=== PATIENT | female | born 1960 | race Caucasian/White ===

== ENCOUNTER → 2017-01-16 | Outpatient (CLI) | payer BC ==
--- NOTE | 2017-01-16 15:53 | CT ---
EXAM DESCRIPTION: Abdoment/Pelvis w/o Contrast CLINICAL HISTORY: KIDNEY STONES COMPARISON: None. TECHNIQUE: CT of the abdomen and pelvis was performed without contrast. Multiple axial images and multiplanar reconstructions were generated. FINDINGS: Lung bases are clear. Osseous structures demonstrate no suspicious findings. There is a 3 mm stone noted within the distal right ureter resulting in right hydronephrosis. Nonobstructing 1 mm left midsegment renal stone. No additional renal stones noted. The liver, spleen, bilateral adrenal glands and pancreas are unremarkable. Patient is status post cholecystectomy. The bowel is unremarkable. Patient is status post hysterectomy. The pelvis is unremarkable. IMPRESSION: 1. 3 mm right distal ureteral stone resulting in moderate right hydronephrosis. 2. Tiny 1 mm midsegment left nonobstructing renal stone. 3. Patient is status post hysterectomy and cholecystectomy. Electronically signed by: Navid Mckeon MD 01/16/2017 3:51 PM [employer]ERK
== END | disposition home or self-care (01) ==
LOC: GMAM 13:22
PROVIDERS: ATTEND Nurse Practitioner Family
DX: R31.9 Hematuria, unspecified (principal)

== ENCOUNTER 2017-01-26 10:57 | Emergency (ER) | payer BC ==
--- NOTE | 2017-01-26 11:28 | ED.PDOC ---
History of Present Illness - General Chief Complaint: Abdominal Pain Stated Complaint: abdominal pain Time Seen by Provider: 01/26/17 11:00 Information Source: patient, RN notes reviewed, Vital Signs reviewed Exam Limitations: no limitations - History of Present Illness Initial Comments: Patient reports that on Friday she started with R flank and abd pain. She has been running a fever to 103 and this morning she started vomiting. Almost 2 weeks ago she was diagnosed with a 3mm kidney stone on R and was placed on antibiotics and flomax. She felt like she passed the stone 1 week ago because the pain resolved. Her doctor did call last week and placed her on a different antibiotic for her UTI but she does not recall the name of the new antibiotic. Abdominal Pain Onset Location: RUQ, flank - Right Pain Radiation: groin Quality: severe, cramping, stabbing, throbbing Timing/Duration: days - 3 Improving Factors: nothing Worsening Factors: nothing Associated Symptoms: back pain, fever/chills, nausea/vomiting Review of Systems - Review of Systems Constitutional: States: chills, fever, malaise. Denies: diaphoresis EENTM: States: no symptoms reported Respiratory: States: no symptoms reported Cardiology: States: no symptoms reported Gastrointestinal/Abdominal: States: see HPI, abdominal pain, nausea, vomiting Genitourinary: States: see HPI, pain - R flank Musculoskeletal: States: no symptoms reported Skin: States: no symptoms reported Neurological: States: no symptoms reported Endocrine: States: no symptoms reported Past Medical History (General) - Patient Medical History Hx Gastroesophageal Reflux: Yes Surgical History: cholecystectomy, Hysterectomy - Vaccination History Hx Tetanus, Diphtheria Vaccination: No Hx Influenza Vaccination: Yes - Social History Hx Tobacco Use: No Hx Alcohol Use: Yes - wine at night - Activities of Daily Living Hospice Agency (if applicable):: None - Female History Patient is a Female of Child Bearing Age (10 -59 yrs old): No Patient : No Family Medical History - Family History Mother Family History: Unknown Physical Exam - Physical Exam General Appearance: Obvious distress, Restless, Well Developed, Well Groomed, Well Hydrated, Well Nourished Neck: non-tender, full range of motion, supple, normal inspection Respiratory: chest non-tender, lungs clear, normal breath sounds, no respiratory distress, no accessory muscle use Cardiovascular/Chest: regular rate, rhythm, no edema, no gallop, no JVD, no murmur Gastrointestinal/Abdominal: soft, abnormal bowel sounds - hypoactive, distended - RUQ & RLQ, tenderness - RUQ and RLQ Back Exam: CVA tenderness (R) Extremity: normal range of motion, non-tender, normal inspection Neurologic: no motor/sensory deficits, alert, normal mood/affect, oriented x 3 Skin Exam: normal color, warm/dry Lymphatic: no adenopathy Progress - Progress Progress: 01/26/17 13:22 Discussed results with patient. Seeing as kidney stone has not moved and hydroureter and pyelo have worsened with transfer to [facility] in [place] for definitive treatment. She is in agreement with plan but would like to go by private vehicle. - Results/Orders Results/Orders: Laboratory Tests 01/26/17 01/26/17 11:37 11:44 WBC 13.7 H RBC 4.78 Hgb 14.0 Hct 41.8 MCV 87.5 MCH 29.2 MCHC 33.4 RDW 13.3 Plt Count 398 MPV 7.3 L Absolute Neuts (auto) 9.90 H Absolute Lymphs (auto) 2.20 Absolute Monos (auto) 1.50 H Absolute Eos (auto) 0.10 Absolute Basos (auto) 0.10 Neutrophils % 71.9 Lymphocytes % 16.1 L Monocytes % 10.6 H Eosinophils % 0.6 L Basophils % 0.8 Sodium 138 Potassium 3.6 Chloride 100 L Carbon Dioxide 28 Anion Gap 13.6 BUN 11 Creatinine 0.73 BUN/Creatinine Ratio 15.1 Random Glucose 112 H Serum Osmolality 275.8 Calcium 9.5 Total Bilirubin 0.8 AST 16 ALT 13 Alkaline Phosphatase 65 Serum Total Protein 8.1 Albumin 4.1 Globulin 4.0 H Albumin/Globulin Ratio 1.0 L Urine Color Yellow Urine Appearance Clear Urine pH 6.0 Ur Specific [place] 1.015 Urine Protein 30 Urine Glucose (UA) Negative Urine Ketones Negative Urine Blood Small H Urine Nitrite Positive H Urine Bilirubin Negative Urine Urobilinogen 0.2 Ur Leukocyte Esterase Large H Urine RBC 5-10 H Urine WBC 20-30 H Ur Epithelial Cells 5-10 Urine Bacteria 2+ H - EKG/XRAY/CT CT Ordered: Yes - abd/pel: 4mm R mid uretral stone, unchanged from prior CT with Mod hydroure Departure - Departure Clinical Impression: Pyelonephritis, Kidney stone on right side, Hydroureter on right Time of Disposition: 13:25 Disposition: Transfer to Hospital Condition: Good Departure Forms: ED Discharge - Pt. Copy, Patient Portal Self Enrollment Instructions: DI for Kidney Stones, DI for Kidney Infection Referrals: Quoc Roth III, MD [Primary Care Provider] - 1-2 Weeks Home Medications: Ambulatory Orders Aspirin [Aspirin EC] 81 mg PO DAILY 01/26/17 Estradiol 0.5 mg PO DAILY 01/26/17 Pantoprazole Sodium [Protonix] 40 mg PO DAILY 01/26/17 Tramadol HCl 50 mg PO TID PRN 01/26/17 Trazodone HCl 50 mg PO BEDTIME 01/26/17 Transfer to Outside Facility - Transfer Information Accepting Provider:: Dr. Lindsey Accepting Facility: [facility] Reason for Transfer: required specialist not available
[2017-01-26] MEDS: ONDANSETRON INJ 4 MG/2 ML VIAL IV ONE (11:42)
[2017-01-26] MEDS: KETOROLAC TROMETHAMINE INJ 30 MG/ML VIAL IV ONE (11:43)
[2017-01-26] MEDS: SODIUM CHLORIDE 0.9% 1000ML 1,000 ML IVS ONE (11:44)
--- NOTE | 2017-01-26 13:05 | CT ---
PROCEDURE: Abdoment/Pelvis w/o Contrast HISTORY: R flank pain Indication: Right flank pain Comparison: 01/16/2017 Technique: CT of the abdomen and pelvis was done without intravenous contrast. Images were obtained from the lung base to the level of the pubic symphysis in axial plane, followed by orthogonal sagittal and coronal reconstruction. Oral contrast was noted given for the study. FINDINGS: Images through the lung bases do not show any focal infiltrates or pleural effusions. The liver, pancreas, spleen and the bilateral adrenal glands appear unremarkable, given the limitation of lack of intravenous contrast. The gallbladder is surgically absent There continues to be moderate amount of right-sided hydroureteronephrosis to the level of the 4 mm calculus seen in the mid right pelvic ureter, unchanged in position since CT examination done on 01/16/2017. Proximal to this right pelvic ureteral calculus there is additional new 1 mm calculus, best appreciated on the coronal images. Post obstructive perinephric stranding is seen around the right kidney Note is again made of a 1 mm nonobstructive calculus in the lower pole of the left kidney The urinary bladder is unremarkable, without any evidence of wall thickening, calculi or filling defects. The small bowel appears unremarkable, without any evidence of small bowel obstruction or bowel wall thickening. There is no CT evidence of acute appendicitis, pericecal inflammatory change or ileocecal mesenteric adenitis. The ileocecal junction appears unremarkable. There is no CT evidence of acute colonic diverticulitis or colitis or large bowel obstruction. There is no pathological lymphadenopathy in the retroperitoneum or in the pelvic region. There is no evidence of free fluid or free air in the abdomen or the pelvic region. There is no clinically significant abdominal aortic aneurysm. There is no clinically significant inguinal or ventral hernia. The visualized lumbar spine shows mild degenerative change. The paravertebral soft tissues are unremarkable. The remainder of the pelvic structures are unremarkable. IMPRESSION: There continues to be moderate amount of right-sided hydroureteronephrosis to the level of the 4 mm calculus seen in the mid right pelvic ureter, unchanged in position since CT examination done on 01/16/2017. Proximal to this right pelvic ureteral calculus there is additional new 1 mm calculus, best appreciated on the coronal images. Post obstructive perinephric stranding is seen around the right kidney Note is again made of a 1 mm nonobstructive calculus in the lower pole of the left kidney Electronically signed by: Best Brizuela MD 01/26/2017 1:04 PM CDT
[2017-01-26] MEDS ORDERED: PIPERACILLIN/TAZOBACTAM 3.375 GM VIAL IVPB ONE (13:58)
[2017-01-26] MEDS: HYDROmorphone HCL INJ 2 MG/ML VIAL IV ONE (13:59)
[2017-01-26] MEDS: PIPERACILLIN/TAZOBACTAM 3.375 GM in SODIUM CHLORIDE 0.9% 100ML 100 ML IVPB ONE (13:59)
[2017-01-26] MEDS ORDERED: SODIUM CHLORIDE 0.9% 100ML 100 ML IVPB ONE (13:59)
[2017-01-26] MEDS ORDERED: SODIUM CHLORIDE 0.9% 10 ML VIAL ONE (14:05)
[2017-01-26 14:39] VITALS: BP 164/75; TEMP 99.6; O2SAT 97
== END 2017-01-26 14:35 | disposition short-term general hospital (02) ==
LOC: ER 10:57
DX: N12 Tubulo-interstitial nephritis, not specified as acute or chronic (principal); N13.4 Hydroureter; N20.1 Calculus of ureter; K21.9 Gastro-esophageal reflux disease without esophagitis
CPT/HCPCS: 36415; 74176; 80053; 81001; 85025; 87086; 87088; 87186; J1170; J1885; J2405; J2543; J7030; J7050

== ENCOUNTER → 2017-02-11 | Outpatient (CLI) | payer BC | END | disposition home or self-care (01) | LOC: GMAM 14:13 | PROVIDERS: ATTEND Family Medicine | DX: R53.83 Other fatigue (principal); E55.9 Vitamin D deficiency, unspecified ==

== ENCOUNTER → 2017-06-05 | Outpatient (CLI) | payer BC | END | disposition home or self-care (01) | LOC: GMAM 10:50 | PROVIDERS: ATTEND Family Medicine | DX: E55.9 Vitamin D deficiency, unspecified (principal) ==